=== PATIENT | female | born 1970 | race Caucasian/White ===

== ENCOUNTER 2019-01-16 21:23 | Emergency (ER) | payer MEDICARE, MEDICAID ==
[2019-01-16] MEDS ORDERED: Diazepam SYRINGE* 5 MG/ML 2 ML SYRINGE (10 MG total) IV ONE (22:21)
[2019-01-16] MEDS ORDERED: NS 0.9% 1000 ML** 2,000 ML IV ONE (22:21)
[2019-01-16] MEDS ORDERED: Ketorolac INJ* 30 MG/ML 1 ML VIAL IV PUSH ONE (22:21)
[2019-01-16] MEDS ORDERED: Insulin REGULAR(*) 1 UNITS UNIT IV PUSH ONE (22:21)
[2019-01-16] MEDS ORDERED: Diazepam INJ (NF) 5 MG/ML 10 ML VIAL (50 MG TOTAL) IV ONE (22:21)
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
[2019-01-16 22:37] LABS: Urine Appearance Clear; Urine Bilirubin Negative (Negative); Urine Blood Negative (Negative); Urine Color Straw; Urine Glucose 3+(>=500 mg/dL) (Negative); Urine Ketones Trace (Negative); Urine Nitrite Negative (Negative); Urine Protein Negative (Negative); Urine Specific Gravity 1.014 (1.010-1.030); Urine Urobilinogen Negative (Negative)
[2019-01-16 22:51] LABS: Urine Benzodiazepine Screen None Detected (None Detect); Urine Opiates Screen None Detected (None Detect)
[2019-01-16] MEDS ORDERED: Morphine 4 MG/ML VIAL (1 ml) 4 MG/ML VIAL IV ONE (23:09)
[2019-01-16 23:17] LABS: ALT 12 U/L (7-52); AST 14 U/L (13-39); Albumin 4.3 g/dL (3.2-5.2); Albumin/Globulin Ratio 1.5 (1-3); Alkaline Phosphatase 64 U/L (34-104); Anion Gap 9 mmol/L (2-11); Blood Urea Nitrogen 9 mg/dL (6-24); CO2 Carbon Dioxide 23 mmol/L (22-32); Chloride 107 mmol/L (101-111); EGFR African American 80.5 (>60); EGFR Non-African American 66.5 (>60); Globulin 2.8 g/dL (2-4); Glucose 404 mg/dL (70-100); Potassium 4.7 mmol/L (3.5-5.0); Sodium 139 mmol/L (135-145); Total Protein 7.1 g/dL (6.4-8.9)
[2019-01-16 23:33] LABS: ABS Basophils 0.1 10^3/ul (0-0.2); ABS Eosinophils 0.1 10^3/ul (0-0.6); ABS Lymphocytes 2.5 10^3/ul (1.0-4.8); ABS Monocytes 0.4 10^3/ul (0-0.8); ABS Neutrophils 5.2 10^3/ul (1.5-7.7); Eosinophil % 1.1 %; Hematocrit 39 % (35-47); Lymphocyte % 29.7 %; Mean Corpuscular HGB Conc 33 g/dL (31-36); Mean Corpuscular Hemoglobin 31 pg (27-31); Mean Corpuscular Volume 92 fL (80-97); Mean Platelet Volume 7.7 fL (7.4-10.4); Nucleated Red Blood Cells % 0.1; Platelet Count 297 10^3/uL (150-450); Red Blood Count 4.25 10^6 /uL (3.70-4.87); Red Cell Distribution Width 16 % (10-15); White Blood Count 8.3 10^3/uL (3.5-10.8)
[2019-01-17 00:45] LABS: Acetaminophen < 15 mcg/mL; Alcohol 263 mg/dL (<10); Salicylate < 2.50 mg/dL (<30)
[2019-01-17 01:00] LABS: TSH (Thyroid Stimulating Horm) 6.41 mcIU/mL (0.34-5.60)
[2019-01-17] MEDS ORDERED: fentaNYL* 50 MCG/ML 2 ML VIAL (100 MCG VIAL) IV SLOW PU ONE (01:14)
[2019-01-17] MEDS ORDERED: Insulin REGULAR(*) 1 UNITS UNIT SUBCUT ONE (04:02)
[2019-01-17 06:48] VITALS: BP 122/69
== END 2019-01-17 06:49 | disposition home or self-care (01) ==
LOC: ED 21:23
DX: F39 Unspecified mood [affective] disorder (principal); E11.65 Type 2 diabetes mellitus with hyperglycemia; F10.129 Alcohol abuse with intoxication, unspecified; M54.9 Dorsalgia, unspecified; R11.10 Vomiting, unspecified; R19.7 Diarrhea, unspecified; Z88.0 Allergy status to penicillin; Z79.899 Other long term (current) drug therapy; Z79.4 Long term (current) use of insulin; Z86.711 Personal history of pulmonary embolism; F41.9 Anxiety disorder, unspecified; F17.210 Nicotine dependence, cigarettes, uncomplicated
CPT/HCPCS: 36415; 80053; 80307; 80320; 80329; 81003; 82803; 84443; 85025; 96361; 96374; 96375; 99285; G0480; J1885; J2270; J3010; J3360

== ENCOUNTER 2019-03-13 12:49 | Emergency (ER) | payer MEDICARE, MEDICAID ==
--- OUTSIDE RECORDS SUMMARY | 2019-03-13 13:18 | XMS REPORT ---
:1970 Author Organization [facility] Care Team Providers Name Role Phone Roni Estrella Unavailable Unavailable PROBLEMS Unknown Problems ALLERGIES No Information ENCOUNTERS Encounter Location Date Diagnosis [facility] [address] [place], [place] Jan, [address] Jan, [address] [facility] [address] [place], [place] Dec, [address] Dec, [address] [facility] [address] [place], [place] Jul, [place] [address] Jun, [place] [address] Jun, [place] [address] [facility] [address] [place], [place] Jun, [place] [address] Mar, [place] [address] [facility] [address] [facility] Feb, [place] [address] [facility] [address] [place], [place] Feb, [place] [address] [facility] [address] [place], [place] Feb, [place] [address] [facility] [address] [facility] Nov, [place] [address] [facility] [address] [facility] Sep, [place] [address] [place], [place] Jul, 2014 [facility] [address] IMMUNIZATIONS No Known Immunizations SOCIAL HISTORY Never Assessed REASON FOR REFERRAL FUNCTIONAL STATUS PLAN OF CARE VITAL SIGNS MEDICATIONS Unknown Medications PROCEDURES No Known procedures RESULTS No Results REASON FOR VISIT acute dental triage Insurance Providers [facility] Patient Patient Patient Patient Patient Subscriber Subscriber Subscriber Group Insurance Plan Plan Plan Plan ID Relationship Address Phone Name Date of ID Name Date of No Type Insurance Insurance Insurance Coverage to Subscriber Address Phone Name Dates [facility] [phone] [facility] self [place] [id number] M Family [place] 02 [place] [address] Planning Full Fee Full Fee Medicaid [phone] Medicaid self Abida [id number] [facility] [address] [place] [id number] Medicare [place] [phone] Medicare self Abida [id number] PPS Government 41 PPS [place] [employer] [address] [facility] [id number] [facility] [phone] [facility] self [place] [id number] C D Family [place] 02 C [place] [address] Planning 0
--- OUTSIDE RECORDS SUMMARY | 2019-03-13 13:18 | XMS REPORT ---
:1970 Author Organization [facility] Care Team Providers Name Role Phone Roni Estrella Unavailable Unavailable PROBLEMS Unknown Problems ALLERGIES No Information ENCOUNTERS Encounter Location Date Diagnosis [facility] [address] [place], [place] Jan, [address] Jan, [address] [facility] [address] [place], [place] Dec, [address] Dec, [address] [facility] [address] [place], [place] Jul, [place] [address] Jun, [place] [address] Jun, [place] [address] [facility] [address] [place], [place] Jun, [place] [address] Mar, [place] [address] [facility] [address] [facility] Feb, [place] [address] [facility] [address] [place], [place] Feb, [place] [address] [facility] [address] [place], [place] Feb, [place] [address] [facility] [address] [facility] Nov, [place] [address] [facility] [address] [facility] Sep, [place] [address] [place] [address] [place], [address] Jul, 2014 [place] [address] IMMUNIZATIONS No Known Immunizations SOCIAL HISTORY Never Assessed REASON FOR REFERRAL FUNCTIONAL STATUS PLAN OF CARE VITAL SIGNS MEDICATIONS Unknown Medications PROCEDURES Procedure Date Ordered Result Body Site PANORAMIC FILM SEE ALSO CODE 40832 Jan 22, 2019 INTRAORL-PERIAPICAL 1 FILM 41080 Jan 22, 2019 LTD ORAL EVALUATION-PROBLEM FOCUS Jan 22, 2019 RESULTS No Results REASON FOR VISIT Insurance Providers [facility] Health Member Patient Patient Patient Patient Patient Subscriber Subscriber Subscriber Group Insurance Plan Plan Plan Plan ID Relationship Address Phone Name Date of ID Name Date of No Type Insurance Insurance Insurance Coverage to Subscriber Address Phone Name Dates Medicare National [id number] Medicare self Ab[place] [id number] PPS Government 41 PPS [employer] [address] [place] [id number] [facility] [phone] [facility] self [place] [id number] M Family [place] 02 [place] [address] Planning Full Fee Full Fee [facility] [phone] [facility] self [place] [id number] C D Family [place] 02 C [place] [address] Planning 0 Medicaid [phone] Medicaid self [place] [id number] [facility] [address] [place] [id number]
[2019-03-13 15:05] VITALS: BP 164/79
--- NOTE | 2019-03-13 15:07 | ED ---
Back Pain - HPI Summary HPI Summary: This patient is a 48-year-old female presenting to the ED after a fall last evening around 3 AM. She states she was at her bachelorette libertarian when she fell in the bathtub. She fell directly over to her right side. She states she was able to fall asleep, but awoke with 10/10 pain. She denies any radiation of pain. Denies any bruising or other color changes to the area. She states she is having a difficulty breathing due to the amount of pain to the right side. She is not able to take a deep breath due to pain. Patient has prescriptions for oxycodone at home, but did not take this. She states she took her ibuprofen prior to arrival approximate 3 hours ago. She denies any other pain. Denies any chest pain, hitting her head or LOC. - History of Current Complaint Chief Complaint: EDChestWallPain Stated Complaint: FELL/RT SIDED PAIN PER EMS Time Seen by Provider: 03/13/19 13:21 Hx Obtained From: Patient Onset/Duration: Sudden Onset Onset/Duration: Started Hours Ago Timing: Constant Back Pain Location: Is Discrete @ - right rib pain Pain Intensity: 10 Pain Scale Used: 0-10 Numeric Character: Aching Alleviating Symptom(s): Rest, Position Associated Signs And Symptoms: Positive: Negative - Risk Factors AAA Risk Factors: Negative TAD Risk Factors: Negative Cauda Equina Risk Factors: Negative Epidural Abscess Risk Factors: Negative - Allergies/Home Medications Allergies/Adverse Reactions: Allergies Allergy/AdvReac Type Severity Reaction Status Date / Time ibuprofen Allergy Hives Verified 01/16/19 22:55 MS Penicillins [PCN] Allergy Hives Verified 01/16/19 21:56 Home Medications: Home Medications Semaglutide [Ozempic] 0.25 mg SUBCUT WEEKLY 03/13/19 [History Confirmed 03/13/19 ] PMH/Surg Hx/FS Hx/Imm Hx Previously Healthy: Yes Endocrine/Hematology History: Reports: Hx Diabetes - ON INSULIN Respiratory History: Reports: Hx Pulmonary Embolism - 2011, NOW OFF COUMADIN Sensory History: Reports: Hx Contacts or Glasses - GLASSES Opthamlomology History: Reports: Hx Contacts or Glasses - GLASSES Neurological History: Reports: Other Neuro Impairments/Disorders - DIABETIC NEUROPATHY Psychiatric History: Reports: Hx Anxiety - ON DAILY MEDS, Hx Depression Denies: Hx Eating Disorder, Hx of Violent Episodes Against Others - Surgical History Surgery Procedure, Year, and Place: 1991 APPENDECTOMY LURDES. 1991 BILATERAL TUBAL LIGATION [place]. 2009 ABLATION SHERRI. 02/2013 HYSTERECTOMY LURDES Hx Anesthesia Reactions: No - Immunization History Hx Pertussis Vaccination: No Immunizations Up to Date: Yes Infectious Disease History: No Infectious Disease History: Denies: Traveled Outside the [place] in Last 30 Days - Social History Occupation: Employed Full-time Lives: With Family Alcohol Use: Occasionally Hx Substance Use: Yes Substance Use Type: Reports: Marijuana Hx Tobacco Use: Yes Smoking Status (MU): Light Every Day Tobacco Smoker Amount Used/How Often: LESS THEN 1PPD 3 YEARS Have You Smoked in the Last Year: Yes Review of Systems Negative: Fever, Chills, Fatigue, Skin Diaphoresis Negative: Palpitations, Chest Pain Negative: Shortness Of Breath, Cough Genitourinary: Negative Positive: no symptoms reported, see HPI Positive: Arthralgia - right rib pain Negative: Rash, Bruising Neurological: Negative All Other Systems Reviewed And Are Negative: Yes Physical Exam Triage Information Reviewed: Yes Vital Signs On Initial Exam: Initial Vitals Temp Pulse Resp BP Pulse Ox 97.7 F 111 22 201/103 96 03/13/19 12:54 03/13/19 12:54 03/13/19 12:54 03/13/19 12:54 03/13/19 12:54 Vital Signs Reviewed: Yes Appearance: Positive: Pain Distress Skin: Positive: Warm, Skin Color Reflects Adequate Perfusion Head/Face: Positive: Normal Head/Face Inspection Eyes: Positive: EOMI, Conjunctiva Clear Neck: Positive: Supple, No Lymphadenopathy Respiratory/Lung Sounds: Positive: Clear to Auscultation, Breath Sounds Present Cardiovascular: Positive: RRR, Pulses are Symmetrical in both Upper and Lower Extremities Musculoskeletal: Positive: Pain @ - right rib pain Neurological: Positive: Sensory/Motor Intact, Alert, Oriented to Person Place, Time, Speech Normal Psychiatric: Positive: Affect/Mood Appropriate Diagnostics - Vital Signs Vital Signs Temp Pulse Resp BP Pulse Ox 03/13/19 12:54 97.7 F 111 22 201/103 96 - Laboratory Lab Results: Lab Results 03/13/19 Range/Units 13:25 POC Glucose (mg/dL) 59 L (70-100) mg/dL Lab Statement: Any lab studies that have been ordered have been reviewed, and results considered in the medical decision making process. Back Pain Course/Dx - Course Course Of Treatment: During this course treatment, the patient is evaluated for right-sided rib pain after a fall at approximately 3 AM into the bathtub. Patient states she has been taking ibuprofen without much relief. She states she is short of breath due to not being able to take a deep breath due to pain. She has been taking ibuprofen, but states this is not helping. An x-ray of the right rib series as well as a PA and lateral chest was obtained which shows no acute fractures or other findings. Discussed this with patient. I stop reveals several oxycodone prescriptions from different providers. She is encouraged ibuprofen, heat and rest and to return if she develops any other symptoms. - Diagnoses Differential Diagnosis/HQI/PQRI: Positive: Fracture, Strain, Sprain Provider Diagnoses: Contusion of rib Discharge ED - Sign-Out/Discharge Documenting (check all that apply): Patient Departure Patient Received Moderate/Deep Sedation with Procedure: No - Discharge Plan Condition: Stable Disposition: HOME Patient Education Materials: Rib Contusion (ED) Referrals: No Primary Care Phys,NOPCP [Primary Care Provider] - Additional Instructions: Ibuprofen 600 mg 3 times daily Moist heat to the area Pillow to the area over the right rib cage to prevent worsening pain - Billing Disposition and Condition Condition: STABLE Disposition: Home - Attestation Statements Provider Attestation: I was available for consult. This patient was seen by the YANIRA. The patient was not presented to, seen by, or examined by me. Ino Peña MD
== END 2019-03-13 15:05 | disposition home or self-care (01) ==
LOC: ED 12:49
DX: S20.211A Contusion of right front wall of thorax, initial encounter (principal); W18.2XXA Fall in (into) shower or empty bathtub, initial encounter; Y92.9 Unspecified place or not applicable; E11.9 Type 2 diabetes mellitus without complications; F41.9 Anxiety disorder, unspecified; F32.9 Major depressive disorder, single episode, unspecified; Z90.710 Acquired absence of both cervix and uterus; F17.210 Nicotine dependence, cigarettes, uncomplicated; Z79.4 Long term (current) use of insulin; Z79.899 Other long term (current) drug therapy; Z88.6 Allergy status to analgesic agent; Z88.0 Allergy status to penicillin
CPT/HCPCS: 99282

== ENCOUNTER 2021-07-31 08:46 | Inpatient (IN) ==
[2021-07-31] MEDS ORDERED: Insulin GLARGINE 100 un/ml 10 ml VIAL SUBCUT SCH (09:00)
[2021-07-31] MEDS ORDERED: Morphine 4 MG/ML VIAL (1 ml) IV ONE (09:08)
[2021-07-31] MEDS ORDERED: Heparin DRIP 25,000 UNITS BAG 25,000 UNITS/500 ML BAG IV SCH (09:15)
[2021-07-31] MEDS ORDERED: Iodixanol (CONTRAST) 320 MG/ML 100 ML SDV IV ONE (09:23)
[2021-07-31 09:29] LABS: ABS Basophils 0.1 10^3/ul (0-0.2); ABS Lymphocytes 1.8 10^3/ul (1.0-4.8); ABS Monocytes 0.9 10^3/ul (0-0.8); ABS Neutrophils 7.9 10^3/ul (1.5-7.7); Eosinophil % 0.4 %; Hematocrit 37 % (35-47); Hemoglobin 12.3 g/dL (12.0-16.0); Lymphocyte % 16.4 %; Mean Corpuscular HGB Conc 34 g/dL (31-36); Mean Corpuscular Hemoglobin 32 pg (27-31); Mean Corpuscular Volume 96 fL (80-97); Mean Platelet Volume 7.8 fL (7.4-10.4); Nucleated Red Blood Cells % 0.1; Platelet Count 319 10^3/uL (150-450); Red Blood Count 3.81 10^6 /uL (3.70-4.87); Red Cell Distribution Width 15 % (10-15); White Blood Count 10.7 10^3/uL (3.5-10.8)
[2021-07-31 09:45] LABS: eGFR CKD-EPI 108.8 (>60)
[2021-07-31 09:49] LABS: Troponin I 1.89 ng/mL (<0.03)
[2021-07-31] MEDS ORDERED: Heparin 5000 UNITS/ML 1 mL VIAL IV SCH (10:00)
[2021-07-31] MEDS ORDERED: NS 0.9% 1000 ml BAG 1,000 ML IV SCH ×2 (10:45→13:30)
[2021-07-31 11:33] LABS: Calcium 8.8 mg/dL (8.6-10.3); Potassium 4.1 mmol/L (3.5-5.0)
[2021-07-31] MEDS ORDERED: Iohexol 350 (CONTRAST) 200 ML MDV IV ONE ×3 (11:33→12:51)
[2021-07-31] MEDS ORDERED: Lidocaine 1% VIAL 10 MG/ML VIAL ONE (11:33)
[2021-07-31] MEDS ORDERED: Heparin 2 UNITS/ML 1000 mls 1,000 ML IV ONE ×2 (11:33→12:44)
[2021-07-31] MEDS ORDERED: Midazolam 5 mg/5 ml VIAL 1 mg/ml 5 ml VIAL (5 mg) ONE (11:33)
[2021-07-31] MEDS ORDERED: fentaNYL 100 mcg/2 ml 50 MCG/ML VIAL ONE (11:33)
[2021-07-31] MEDS ORDERED: Heparin 1,000 UNIT/ML 10 ml (10,000 UNITS) CATHLAB/DIALYSIS ONE ×2 (11:33→12:44)
[2021-07-31] MEDS ORDERED: nitroGLYCERIN DRIP 25,000 MCG/250 ML BTL ONE (11:34)
[2021-07-31] MEDS ORDERED: niCARdipine 0.1MG/ML IVPREMIX 20 MG/200 ML BAG IV ONE (11:34)
[2021-07-31 11:59] LABS: Urine Benzodiazepine Screen None Detected (None Detect); Urine Cannabinoids Screen Presumptive Positive (None Detect); Urine Opiates Screen Presumptive Positive (None Detect)
[2021-07-31] MEDS ORDERED: Eptifibatide IV (Load dose) 2 MG/ML 10 ml VIAL ONE (12:27)
[2021-07-31] MEDS ORDERED: Amiodarone IV 150 mg/3 ml VIAL ONE (12:28)
[2021-07-31] MEDS ORDERED: Ondansetron 4 mg VIAL 2 MG/ML 2 ml VIAL ONE (12:31)
[2021-07-31] MEDS ORDERED: Amiodarone 150 mg IVPREMIX 0 MG/0 ML BAG IV ONE (12:33)
[2021-07-31] MEDS ORDERED: Amiodarone 360 MG IVPREMIX 360 MG/200 ML BAG IV ONE (12:34)
[2021-07-31] MEDS ORDERED: Dextrose 50% Syringe 50 ml 25 GM/50 ML SYRINGE IV PUSH PRN ×4 (12:42→17:55)
[2021-07-31] MEDS ORDERED: Prasugrel 10 mg TAB (NF) ONE (13:08)
[2021-07-31] MEDS ORDERED: Ondansetron 4 mg VIAL 2 MG/ML 2 ml VIAL IV PRN (13:24)
[2021-07-31] MEDS ORDERED: Norepinephrine 16MCG/ML BAGD5W 4,000 MCG/250 ML BAG IV ONE (14:02)
[2021-07-31] MEDS ORDERED: EPINEPHrine SYR 0.1MG/ML 10 ml SYRINGE ONE (14:04)
[2021-07-31] MEDS: Amiodarone 360 MG IVPREMIX 360 MG/200 ML BAG IV SCH ×3 (14:56→23:33)
[2021-07-31] MEDS ORDERED: SODIUM CHLORIDE IV SCH (17:00)
[2021-07-31] MEDS ORDERED: NOREPINEPHRINE IV SCH (17:00)
[2021-07-31 17:48] LABS: Calcium 8.3 mg/dL (8.6-10.3); Potassium 4.7 mmol/L (3.5-5.0); eGFR CKD-EPI 106.3 (>60)
[2021-07-31] MEDS ORDERED: Lactated Ringers 1000 ml BAG 1,000 ML IV ONE (17:54)
[2021-07-31 20:04] LABS: Blood Urea Nitrogen 12 mg/dL (6-24); Calcium 8.2 mg/dL (8.6-10.3); Chloride 105 mmol/L (101-111); Glucose 459 mg/dL (70-100); Glucose Confirmatory 459 mg/dL (70-100); Potassium 3.7 mmol/L (3.5-5.0); Sodium 134 mmol/L (135-145); eGFR CKD-EPI 100.5 (>60)
[2021-07-31 20:05] LABS: Anion Gap 20 mmol/L (2-11); CO2 Carbon Dioxide 9 mmol/L (22-32)
[2021-07-31] MEDS ORDERED: Insulin Infusion 100unit/100mL 100 UNIT/100 ML BAG IV SCH (21:00)
[2021-07-31 22:48] LABS: Calcium 8.7 mg/dL (8.6-10.3); Potassium 3.4 mmol/L (3.5-5.0); eGFR CKD-EPI 108.8 (>60)
[2021-07-31] MEDS ORDERED: Potassium Chlor 20 meq TAB.ER PO ONE (23:21)
[2021-07-31 23:48] LABS: Magnesium 1.7 mg/dL (1.9-2.7); Phosphorus 2.7 mg/dL (2.5-5.0)
[2021-08-01] MEDS ORDERED: Magnesium Sulfate IV 3 GM in NS 0.9% 100 ml BAG 100 ML IVPB ONE (00:13)
[2021-08-01] MEDS: Insulin GLARGINE 100 un/ml 10 ml VIAL SUBCUT SCH ×3 (00:50→20:57)
[2021-08-01] MEDS ORDERED: Magnesium Sulfate 1 GM IV 1 GM/100 ML BAG IV ONE (01:00)
[2021-08-01] MEDS ORDERED: Magnesium Sulfate 2 GM IV (Premix) IVPB ONE (01:00)
[2021-08-01 04:22] LABS: ABS Basophils 0.1 10^3/ul (0-0.2); ABS Eosinophils 0.1 10^3/ul (0-0.6); ABS Lymphocytes 2.8 10^3/ul (1.0-4.8); ABS Monocytes 0.8 10^3/ul (0-0.8); ABS Neutrophils 4.8 10^3/ul (1.5-7.7); Hematocrit 32 % (35-47); Hemoglobin 10.5 g/dL (12.0-16.0); Lymphocyte % 32.6 %; Mean Corpuscular HGB Conc 33 g/dL (31-36); Mean Corpuscular Hemoglobin 32 pg (27-31); Mean Corpuscular Volume 98 fL (80-97); Mean Platelet Volume 7.7 fL (7.4-10.4); Nucleated Red Blood Cells % 0.1; Platelet Count 253 10^3/uL (150-450); Red Blood Count 3.23 10^6 /uL (3.70-4.87); Red Cell Distribution Width 15 % (10-15); White Blood Count 8.6 10^3/uL (3.5-10.8)
[2021-08-01 04:35] LABS: Albumin/Globulin Ratio 1.4 (1-3); Calcium 8.2 mg/dL (8.6-10.3); Globulin 2.2 g/dL (2-4); Magnesium 2.5 mg/dL (1.9-2.7); Phosphorus 2.5 mg/dL (2.5-5.0); Potassium 3.3 mmol/L (3.5-5.0); Total Bilirubin 0.3 mg/dL (0.2-1.0); Total Protein 5.2 g/dL (6.4-8.9); eGFR CKD-EPI 106.3 (>60)
[2021-08-01] MEDS ORDERED: Potassium Chlor 20 meq TAB.ER PO ONE (05:19)
[2021-08-01] MEDS ORDERED: KCL 20 MEQ/100 ML IVPREMIX 20 MEQ/100 ML BAG IV ONE (05:19)
[2021-08-01] MEDS ORDERED: Dextrose 50% Syringe 50 ml 25 GM/50 ML SYRINGE IV PUSH PRN ×2 (05:21→09:30)
[2021-08-01] MEDS: Amiodarone 360 MG IVPREMIX 360 MG/200 ML BAG IV SCH ×2 (05:50→09:00)
[2021-08-01] MEDS: CMCS:Prasugrel 10 mg TAB (NF) PO SCH (09:20)
[2021-08-01 16:19] LABS: Calcium 8.4 mg/dL (8.6-10.3); eGFR CKD-EPI 102.2 (>60)
[2021-08-01] MEDS ORDERED: oxyCODONE/Acetamin 5/325 mg TAB PO PRN (19:21)
[2021-08-01] MEDS: oxyCODONE/Acetamin 5/325 mg TAB PO PRN (19:44)
[2021-08-02] MEDS: oxyCODONE/Acetamin 5/325 mg TAB PO PRN ×4 (01:54→22:30)
[2021-08-02 06:49] LABS: ABS Basophils 0.1 10^3/ul (0-0.2); ABS Eosinophils 0.2 10^3/ul (0-0.6); ABS Lymphocytes 2.1 10^3/ul (1.0-4.8); ABS Monocytes 0.6 10^3/ul (0-0.8); ABS Neutrophils 3.8 10^3/ul (1.5-7.7); Eosinophil % 2.3 %; Hematocrit 32 % (35-47); Hemoglobin 10.9 g/dL (12.0-16.0); Lymphocyte % 31.4 %; Mean Corpuscular HGB Conc 34 g/dL (31-36); Mean Corpuscular Hemoglobin 33 pg (27-31); Mean Corpuscular Volume 97 fL (80-97); Platelet Count 198 10^3/uL (150-450); Red Blood Count 3.29 10^6 /uL (3.70-4.87); Red Cell Distribution Width 15 % (10-15); White Blood Count 6.8 10^3/uL (3.5-10.8)
[2021-08-02 07:23] LABS: Magnesium 1.9 mg/dL (1.9-2.7)
[2021-08-02 07:28] LABS: Phosphorus 3.2 mg/dL (2.5-5.0)
[2021-08-02] MEDS: CMCS:Prasugrel 10 mg TAB (NF) PO SCH (09:55)
[2021-08-02 11:30] LABS: Calcium 8.4 mg/dL (8.6-10.3); Potassium 3.9 mmol/L (3.5-5.0); eGFR CKD-EPI 108.8 (>60)
[2021-08-02] MEDS ORDERED: Insulin GLARGINE 100 un/ml 10 ml VIAL SUBCUT SCH (21:00)
[2021-08-03 03:15] VITALS: BP 106/82
[2021-08-03] MEDS: oxyCODONE/Acetamin 5/325 mg TAB PO PRN (06:01)
[2021-08-03 07:19] LABS: ABS Basophils 0.1 10^3/ul (0-0.2); ABS Eosinophils 0.2 10^3/ul (0-0.6); ABS Lymphocytes 2.4 10^3/ul (1.0-4.8); ABS Monocytes 0.5 10^3/ul (0-0.8); ABS Neutrophils 3.2 10^3/ul (1.5-7.7); Eosinophil % 3.5 %; Hematocrit 32 % (35-47); Hemoglobin 10.9 g/dL (12.0-16.0); Lymphocyte % 36.8 %; Mean Corpuscular HGB Conc 34 g/dL (31-36); Mean Corpuscular Hemoglobin 33 pg (27-31); Mean Corpuscular Volume 98 fL (80-97); Mean Platelet Volume 8.2 fL (7.4-10.4); Platelet Count 207 10^3/uL (150-450); Red Cell Distribution Width 15 % (10-15); White Blood Count 6.4 10^3/uL (3.5-10.8)
[2021-08-03] MEDS: CMCS:Prasugrel 10 mg TAB (NF) PO SCH (08:54)
[2021-08-03 12:31] LABS: Calcium 8.6 mg/dL (8.6-10.3)
[2021-08-03 12:37] LABS: eGFR CKD-EPI 116.3 (>60)
[2021-08-03 14:12] LABS: TSH Ultra Thyroid Stim Horm 12.73 mcIU/mL (0.34-5.60)
[2021-08-03 14:56] LABS: Potassium 4.4 mmol/L (3.5-5.0)
== END 2021-08-03 13:00 | disposition home or self-care (01) | DRG 246 ==
LOC: CHICATH 11:45 → ED 11:45 → CHICATH 11:59 → ICU 13:58 → SUATTDRO 13:58 → MEDTELE 08-01 14:44
PROVIDERS: ADMIT Internal Medicine; ATTEND Hospitalist

== ENCOUNTER 2021-09-28 14:05 | Inpatient (IN) ==
[2021-09-28] MEDS ORDERED: Morphine 4 MG/ML VIAL (1 ml) IV ONE (14:37)
[2021-09-28] MEDS ORDERED: HYDROmorphone 1 MG/1 ML SYRINGE IV SLOW PU ONE (16:23)
[2021-09-28] MEDS ORDERED: Heparin 5000 UNITS/ML 1 mL VIAL SUBCUT SCH (17:24)
[2021-09-28] MEDS ORDERED: Prochlorperazine 5 mg/ml 2 ml VIAL (10 mg) IV PRN (17:25)
[2021-09-28] MEDS: Acetaminophen IV 1 GM/100ML 100 ML IV SCH (17:58)
[2021-09-28 18:13] LABS: ABS Basophils 0.1 10^3/ul (0-0.2); ABS Lymphocytes 1.6 10^3/ul (1.0-4.8); ABS Monocytes 0.8 10^3/ul (0-0.8); ABS Neutrophils 10.5 10^3/ul (1.5-7.7); Eosinophil % 0.3 %; Hematocrit 33 % (35-47); Lymphocyte % 12.1 %; Mean Corpuscular HGB Conc 33 g/dL (31-36); Mean Corpuscular Hemoglobin 32 pg (27-31); Mean Corpuscular Volume 95 fL (80-97); Mean Platelet Volume 7.9 fL (7.4-10.4); Platelet Count 240 10^3/uL (150-450); Red Blood Count 3.48 10^6 /uL (3.70-4.87); Red Cell Distribution Width 13 % (10-15)
[2021-09-28 18:34] LABS: Activated Partial Thrombo Time 28.3 seconds (26.0-38.0); INR 0.98 (0.86-1.15)
[2021-09-28 18:51] LABS: Albumin 3.7 g/dL (3.2-5.2); Albumin/Globulin Ratio 1.7 (1-3); Calcium 8.5 mg/dL (8.6-10.3); Globulin 2.2 g/dL (2-4); Total Bilirubin 0.6 mg/dL (0.2-1.0); Total Protein 5.9 g/dL (6.4-8.9); eGFR CKD-EPI 108.4 (>60)
[2021-09-28 18:53] LABS: Calcium 8.5 mg/dL (8.6-10.3); eGFR CKD-EPI 109.3 (>60)
[2021-09-28] MEDS ORDERED: HYDROmorphone 0.5 MG/0.5 ML SYRINGE IV SLOW PU PRN (20:38)
[2021-09-28] MEDS ORDERED: HYDROmorphone 0.5 MG/0.5 ML SYRINGE IV SLOW PU ONE (21:37)
[2021-09-28] MEDS: NS 0.9% 1000 ml BAG 1,000 ML IV SCH (23:43)
[2021-09-29] MEDS ORDERED: Dextrose 50% Syringe 50 ml 25 GM/50 ML SYRINGE IV PUSH PRN (00:02)
[2021-09-29 00:46] LABS: Urine Appearance Clear; Urine Bilirubin Negative (Negative); Urine Blood Negative (Negative); Urine Color Yellow; Urine Glucose 3+(>=500 mg/dL) (Negative); Urine Ketones Negative (Negative); Urine Nitrite Negative (Negative); Urine Protein Negative (Negative); Urine Urobilinogen Negative (Negative)
[2021-09-29] MEDS: Acetaminophen IV 1 GM/100ML 100 ML IV SCH ×3 (02:07→18:12)
[2021-09-29] MEDS: HYDROmorphone 1 MG/1 ML SYRINGE IV SLOW PU PRN ×5 (02:07→21:11)
[2021-09-29 06:00] LABS: ABS Eosinophils 0.1 10^3/ul (0-0.6); ABS Lymphocytes 1.5 10^3/ul (1.0-4.8); ABS Monocytes 0.6 10^3/ul (0-0.8); ABS Neutrophils 4.5 10^3/ul (1.5-7.7); Eosinophil % 1.3 %; Hematocrit 31 % (35-47); Hemoglobin 10.5 g/dL (12.0-16.0); Lymphocyte % 21.9 %; Mean Corpuscular HGB Conc 34 g/dL (31-36); Mean Corpuscular Hemoglobin 32 pg (27-31); Mean Corpuscular Volume 95 fL (80-97); Mean Platelet Volume 8.1 fL (7.4-10.4); Platelet Count 204 10^3/uL (150-450); Red Blood Count 3.27 10^6 /uL (3.70-4.87); Red Cell Distribution Width 13 % (10-15); White Blood Count 6.7 10^3/uL (3.5-10.8)
[2021-09-29 06:05] LABS: INR 1.01 (0.86-1.15)
[2021-09-29 06:34] LABS: Calcium 8.3 mg/dL (8.6-10.3); Magnesium 1.9 mg/dL (1.9-2.7); Potassium 4.2 mmol/L (3.5-5.0); eGFR CKD-EPI 105.1 (>60)
[2021-09-29] MEDS ORDERED: ceFAZolin 2 GM in NS PREMIX 2 GM/100 ML BAG IVPB ONE (07:37)
[2021-09-29] MEDS ORDERED: Midazolam 2 mg/2 ml VIAL 1 mg/ml 2 ml VIAL (2 mg) ONE (07:46)
[2021-09-29] MEDS ORDERED: Etomidate 20 mg/10 ml 2 MG/ML 10 ml VIAL ONE (08:21)
[2021-09-29] MEDS ORDERED: Clindamycin 900 MG/D5W BAG 900 MG/50 ML BAG IVPB ONE (08:22)
[2021-09-29] MEDS ORDERED: fentaNYL 100 mcg/2 ml 50 MCG/ML VIAL ONE ×2 (08:39→09:22)
[2021-09-29] MEDS ORDERED: Lidocaine 2% PF 5 ML VIAL ONE (08:39)
[2021-09-29] MEDS ORDERED: Dexamethasone IV 4 MG/ML VIAL 1 ml VIAL ONE (08:39)
[2021-09-29] MEDS ORDERED: Rocuronium 50 mg VIAL 10 mg/ml 5 ml VIAL (50 mg) ONE (08:39)
[2021-09-29] MEDS ORDERED: Ondansetron 4 mg VIAL 2 MG/ML 2 ml VIAL ONE (08:39)
[2021-09-29] MEDS ORDERED: Lidocaine 1.5% EPI 1:200,000 30 ML SDV ONE (08:54)
[2021-09-29] MEDS ORDERED: DiMENhydriNATE IV 50 mg/ml 1 ml VIAL ONE (09:06)
[2021-09-29] MEDS ORDERED: EPHEDrine (Pressors) 50 MG/ML VIAL ONE (09:26)
[2021-09-29] MEDS ORDERED: Naloxone 0.4 mg VIAL 0.4 mg/ml 1 ml VIAL IV PRN (10:52)
[2021-09-29] MEDS ORDERED: HYDROmorphone 1 MG/1 ML SYRINGE ONE ×2 (10:58→12:09)
[2021-09-29] MEDS: HYDROmorphone 1 MG/1 ML SYRINGE IV PRN ×4 (11:07→13:02)
[2021-09-29 14:04] LABS: Hematocrit 30 % (35-47); Hemoglobin 10.3 g/dL (12.0-16.0)
[2021-09-29] MEDS: oxyCODONE/Acetamin 5/325 mg TAB PO PRN (15:44)
[2021-09-29] MEDS: ceFAZolin VIAL 1 GM in NS 0.9% 50 ML 50 ML IVPB SCH (17:12)
[2021-09-29] MEDS: NS 0.9% 1000 ml BAG 1,000 ML IV SCH (18:15)
[2021-09-29 20:17] LABS: Hematocrit 27 % (35-47); Hemoglobin 9.3 g/dL (12.0-16.0)
[2021-09-30] MEDS: ceFAZolin VIAL 1 GM in NS 0.9% 50 ML 50 ML IVPB SCH ×2 (01:37→10:30)
[2021-09-30] MEDS: oxyCODONE/Acetamin 5/325 mg TAB PO PRN (01:40)
[2021-09-30] MEDS: Acetaminophen IV 1 GM/100ML 100 ML IV SCH ×4 (01:45→16:27)
[2021-09-30] MEDS: HYDROmorphone 1 MG/1 ML SYRINGE IV SLOW PU PRN (03:33)
[2021-09-30 06:02] LABS: ABS Eosinophils 0.1 10^3/ul (0-0.6); ABS Lymphocytes 0.9 10^3/ul (1.0-4.8); ABS Monocytes 0.6 10^3/ul (0-0.8); Eosinophil % 0.7 %; Hematocrit 25 % (35-47); Hemoglobin 8.5 g/dL (12.0-16.0); Lymphocyte % 12.1 %; Mean Corpuscular HGB Conc 34 g/dL (31-36); Mean Corpuscular Hemoglobin 33 pg (27-31); Mean Corpuscular Volume 96 fL (80-97); Mean Platelet Volume 8.3 fL (7.4-10.4); Platelet Count 168 10^3/uL (150-450); Red Blood Count 2.61 10^6 /uL (3.70-4.87); Red Cell Distribution Width 13 % (10-15); White Blood Count 7.7 10^3/uL (3.5-10.8)
[2021-09-30 06:17] LABS: INR 1.16 (0.86-1.15)
[2021-09-30 06:43] LABS: Calcium 7.9 mg/dL (8.6-10.3); Magnesium 1.6 mg/dL (1.9-2.7); Potassium 4.2 mmol/L (3.5-5.0); eGFR CKD-EPI 108.4 (>60)
[2021-09-30] MEDS: Cholecalciferol (VIT D3) 1,000 unit TAB PO SCH (10:14)
[2021-09-30] MEDS: Heparin 5000 UNITS/ML 1 mL VIAL SUBCUT SCH ×2 (10:25→21:28)
[2021-09-30 10:54] LABS: Urine Appearance Clear; Urine Bilirubin Negative (Negative); Urine Blood Negative (Negative); Urine Color Straw; Urine Glucose 3+(>=500 mg/dL) (Negative); Urine Ketones 2+ (Negative); Urine Nitrite Negative (Negative); Urine Protein Negative (Negative); Urine Specific Gravity 1.024 (1.002-1.030); Urine Urobilinogen Negative (Negative)
[2021-09-30 13:43] LABS: Hematocrit 25 % (35-47); Hemoglobin 8.2 g/dL (12.0-16.0)
[2021-10-01 05:13] LABS: ABS Eosinophils 0.1 10^3/ul (0-0.6); ABS Lymphocytes 1.2 10^3/ul (1.0-4.8); ABS Monocytes 0.9 10^3/ul (0-0.8); ABS Neutrophils 6.5 10^3/ul (1.5-7.7); Hematocrit 23 % (35-47); Hemoglobin 7.8 g/dL (12.0-16.0); Lymphocyte % 13.9 %; Mean Corpuscular HGB Conc 34 g/dL (31-36); Mean Corpuscular Hemoglobin 32 pg (27-31); Mean Corpuscular Volume 97 fL (80-97); Mean Platelet Volume 8.5 fL (7.4-10.4); Platelet Count 171 10^3/uL (150-450); Red Cell Distribution Width 13 % (10-15); White Blood Count 8.7 10^3/uL (3.5-10.8)
[2021-10-01 05:17] LABS: INR 1.04 (0.86-1.15)
[2021-10-01 05:40] LABS: Calcium 8.1 mg/dL (8.6-10.3); Potassium 4.1 mmol/L (3.5-5.0); eGFR CKD-EPI 110.2 (>60)
[2021-10-01] MEDS ORDERED: Magnesium Hydroxide LIQ 30 ML UDC PO PRN (07:42)
[2021-10-01] MEDS ORDERED: Senna TAB 8.6 mg TAB PO PRN (07:42)
[2021-10-01] MEDS ORDERED: Polyethylene Glycol 3350 17 GM PACKET PO PRN (07:42)
[2021-10-01 08:30] LABS: TSH Ultra Thyroid Stim Horm 4.51 mcIU/mL (0.34-5.60)
[2021-10-01] MEDS: Magnesium Hydroxide LIQ 30 ML UDC PO SCH ×2 (08:47→21:14)
[2021-10-01] MEDS: Cholecalciferol (VIT D3) 1,000 unit TAB PO SCH (08:48)
[2021-10-01] MEDS: Insulin GLARGINE 100 un/ml 10 ml VIAL SUBCUT SCH (08:52)
[2021-10-01] MEDS: Heparin 5000 UNITS/ML 1 mL VIAL SUBCUT SCH ×2 (08:52→21:08)
[2021-10-01 09:04] LABS: Magnesium 1.8 mg/dL (1.9-2.7)
[2021-10-01] MEDS ORDERED: Magnesium Sulfate 2 gm BAG 2 GM/50 ML BAG IVPB ONE (09:48)
[2021-10-01 16:32] LABS: Hematocrit 25 % (35-47); Hemoglobin 8.7 g/dL (12.0-16.0)
[2021-10-02 05:58] LABS: ABS Basophils 0.1 10^3/ul (0-0.2); ABS Eosinophils 0.2 10^3/ul (0-0.6); ABS Lymphocytes 1.4 10^3/ul (1.0-4.8); ABS Monocytes 0.6 10^3/ul (0-0.8); ABS Neutrophils 5.7 10^3/ul (1.5-7.7); Eosinophil % 2.6 %; Hematocrit 26 % (35-47); Hemoglobin 8.9 g/dL (12.0-16.0); Lymphocyte % 17.3 %; Mean Corpuscular HGB Conc 34 g/dL (31-36); Mean Corpuscular Hemoglobin 33 pg (27-31); Mean Corpuscular Volume 96 fL (80-97); Mean Platelet Volume 8.3 fL (7.4-10.4); Nucleated Red Blood Cells % 0.1; Platelet Count 198 10^3/uL (150-450); Red Blood Count 2.72 10^6 /uL (3.70-4.87); Red Cell Distribution Width 13 % (10-15)
[2021-10-02 06:30] LABS: Calcium 8.3 mg/dL (8.6-10.3); Potassium 4.7 mmol/L (3.5-5.0); eGFR CKD-EPI 110.7 (>60)
[2021-10-02] MEDS: Cholecalciferol (VIT D3) 1,000 unit TAB PO SCH (09:21)
[2021-10-02] MEDS: Magnesium Hydroxide LIQ 30 ML UDC PO SCH (09:24)
[2021-10-02] MEDS: Heparin 5000 UNITS/ML 1 mL VIAL SUBCUT SCH ×2 (09:25→20:36)
[2021-10-02] MEDS: Insulin GLARGINE 100 un/ml 10 ml VIAL SUBCUT SCH (09:26)
[2021-10-02] MEDS: Morphine 2 MG/ML SYRINGE IV PRN (16:12)
[2021-10-03 05:43] LABS: ABS Basophils 0.1 10^3/ul (0-0.2); ABS Eosinophils 0.3 10^3/ul (0-0.6); ABS Lymphocytes 1.8 10^3/ul (1.0-4.8); ABS Monocytes 0.7 10^3/ul (0-0.8); ABS Neutrophils 4.9 10^3/ul (1.5-7.7); Eosinophil % 3.3 %; Hematocrit 25 % (35-47); Hemoglobin 8.2 g/dL (12.0-16.0); Lymphocyte % 23.1 %; Mean Corpuscular HGB Conc 33 g/dL (31-36); Mean Corpuscular Hemoglobin 32 pg (27-31); Mean Corpuscular Volume 95 fL (80-97); Nucleated Red Blood Cells % 0.1; Platelet Count 214 10^3/uL (150-450); Red Cell Distribution Width 13 % (10-15); White Blood Count 7.6 10^3/uL (3.5-10.8)
[2021-10-03 06:07] LABS: Calcium 8.1 mg/dL (8.6-10.3); eGFR CKD-EPI 110.7 (>60)
[2021-10-03] MEDS ORDERED: Insulin GLARGINE 100 un/ml 10 ml VIAL SUBCUT SCH (09:00)
[2021-10-03] MEDS: Heparin 5000 UNITS/ML 1 mL VIAL SUBCUT SCH ×2 (09:34→22:04)
[2021-10-03] MEDS: Cholecalciferol (VIT D3) 1,000 unit TAB PO SCH (09:34)
[2021-10-03] MEDS: Morphine 2 MG/ML SYRINGE IV PRN ×2 (11:25→23:24)
[2021-10-04 05:53] LABS: ABS Basophils 0.1 10^3/ul (0-0.2); ABS Eosinophils 0.3 10^3/ul (0-0.6); ABS Lymphocytes 1.9 10^3/ul (1.0-4.8); ABS Monocytes 0.6 10^3/ul (0-0.8); ABS Neutrophils 4.5 10^3/ul (1.5-7.7); Eosinophil % 3.6 %; Hematocrit 27 % (35-47); Hemoglobin 8.9 g/dL (12.0-16.0); Lymphocyte % 26.3 %; Mean Corpuscular HGB Conc 33 g/dL (31-36); Mean Corpuscular Hemoglobin 32 pg (27-31); Mean Corpuscular Volume 96 fL (80-97); Mean Platelet Volume 8.2 fL (7.4-10.4); Platelet Count 254 10^3/uL (150-450); Red Blood Count 2.76 10^6 /uL (3.70-4.87); Red Cell Distribution Width 13 % (10-15); White Blood Count 7.4 10^3/uL (3.5-10.8)
[2021-10-04 06:22] LABS: Calcium 8.3 mg/dL (8.6-10.3); Potassium 3.8 mmol/L (3.5-5.0); eGFR CKD-EPI 112.8 (>60)
[2021-10-04] MEDS: Cholecalciferol (VIT D3) 1,000 unit TAB PO SCH (09:33)
[2021-10-04] MEDS: Insulin GLARGINE 100 un/ml 10 ml VIAL SUBCUT SCH (09:37)
[2021-10-04] MEDS: Heparin 5000 UNITS/ML 1 mL VIAL SUBCUT SCH ×2 (09:37→21:15)
[2021-10-04] MEDS: Morphine 2 MG/ML SYRINGE IV PRN ×2 (13:16→21:15)
[2021-10-05 06:06] LABS: Hematocrit 29 % (35-47); Hemoglobin 9.7 g/dL (12.0-16.0); Mean Corpuscular HGB Conc 34 g/dL (31-36); Mean Corpuscular Hemoglobin 32 pg (27-31); Mean Corpuscular Volume 95 fL (80-97); Mean Platelet Volume 8.1 fL (7.4-10.4); Platelet Count 307 10^3/uL (150-450); Red Blood Count 3.04 10^6 /uL (3.70-4.87); Red Cell Distribution Width 13 % (10-15); White Blood Count 7.2 10^3/uL (3.5-10.8)
[2021-10-05 06:17] LABS: ABS Basophils 0.1 10^3/ul (0-0.2); ABS Eosinophils 0.3 10^3/ul (0-0.6); ABS Monocytes 0.6 10^3/ul (0-0.8); ABS Neutrophils 4.3 10^3/ul (1.5-7.7); Eosinophil % 3.5 %; Lymphocyte % 28.3 %
[2021-10-05 06:39] LABS: Calcium 8.8 mg/dL (8.6-10.3); Potassium 4.2 mmol/L (3.5-5.0); eGFR CKD-EPI 108.8 (>60)
[2021-10-05] MEDS: Morphine 2 MG/ML SYRINGE IV PRN ×2 (07:34→13:08)
[2021-10-05] MEDS: Cholecalciferol (VIT D3) 1,000 unit TAB PO SCH (08:53)
[2021-10-05] MEDS: Heparin 5000 UNITS/ML 1 mL VIAL SUBCUT SCH ×2 (08:54→20:15)
[2021-10-05] MEDS: Insulin GLARGINE 100 un/ml 10 ml VIAL SUBCUT SCH (09:03)
[2021-10-05] MEDS: Morphine ORAL.SOLN 10 mg 2 mg/ml UDC 5 ml (10 mg) PO PRN ×2 (16:06→20:13)
[2021-10-05 17:38] LABS: Rapid COVID-19 Molecular Undetected (Undetected)
[2021-10-06] MEDS: Morphine ORAL.SOLN 10 mg 2 mg/ml UDC 5 ml (10 mg) PO PRN ×4 (00:54→14:04)
[2021-10-06 05:55] LABS: ABS Basophils 0.1 10^3/ul (0-0.2); ABS Eosinophils 0.2 10^3/ul (0-0.6); ABS Lymphocytes 1.7 10^3/ul (1.0-4.8); ABS Monocytes 0.5 10^3/ul (0-0.8); ABS Neutrophils 4.5 10^3/ul (1.5-7.7); Eosinophil % 2.7 %; Hematocrit 27 % (35-47); Lymphocyte % 24.6 %; Mean Corpuscular HGB Conc 34 g/dL (31-36); Mean Corpuscular Hemoglobin 32 pg (27-31); Mean Corpuscular Volume 95 fL (80-97); Mean Platelet Volume 7.9 fL (7.4-10.4); Platelet Count 319 10^3/uL (150-450); Red Blood Count 2.81 10^6 /uL (3.70-4.87); Red Cell Distribution Width 13 % (10-15)
[2021-10-06] MEDS: Insulin GLARGINE 100 un/ml 10 ml VIAL SUBCUT SCH (08:58)
[2021-10-06] MEDS: Heparin 5000 UNITS/ML 1 mL VIAL SUBCUT SCH (08:59)
[2021-10-06] MEDS: Cholecalciferol (VIT D3) 1,000 unit TAB PO SCH (09:00)
[2021-10-06 10:58] VITALS: BP 111/72
== END 2021-10-06 14:07 | DRG 481 ==
LOC: ED 14:05 → EDHOLD 17:19 → SUATTDRO 17:19 → SSU 20:37
PROVIDERS: ADMIT Internal Medicine; ATTEND Hospitalist